=== PATIENT | male | born 1930 | race Caucasian/White ===

== ENCOUNTER 2017-01-15 07:13 | Day surgery (SDC) | payer MEDICARE, BC ==
[~2017-01-15 07:13] MED LIST: RINGERS SOLUTION,LACTATED 1,000 ML IV PRN
--- OUTSIDE RECORDS SUMMARY | 2017-01-15 07:18 | XMS REPORT | Continuity of Care Document ---
:1930 Author Organization [facility] ([facility]) Address [place] [address] Phone [phone] Care Team Providers Name Role Phone Irving Jackman Primary Care Provider [phone] Source Comments This disclosure is being made pursuant to the Care Everywhere program, applicable federal and state laws, and may not contain all informaitonavailable regarding this patient.[facility] ([facility]) Active Allergies and Adverse Reactions Allergen Noted Date Severity Reactions Comments Atorvastatin 09/21/2015 OTHER Muscle weakness Enalapril 09/21/2015 OTHER Muscle weakness Simvastatin 09/21/2015 OTHER Muscle weakness Current Medications Prescription Sig. Disp. Refills Start Date End Date Status acebutolol 200 mg capsule Take 200 mg by Active mouth 2 times daily aspirin 81 mg EC tablet Take 81 mg by Active mouth daily colestipol 1 gram tablet Take 2 g by Active mouth 3 times daily omega-3 fatty acids 1,000 mg Take 1,000 mg by Active capsule mouth 3 times daily gabapentin 300 mg capsule Take 300 mg by Active mouth 2 times daily hydrochlorothiazide 25 mg Take 25 mg by Active tablet mouth daily losartan 100 mg tablet Take 100 mg by Active mouth daily multivitamin tablet Take 1 tablet by Active mouth daily nitroglycerin 0.[address] 0.4 mg Active tablet under the tongue every 5 minutes as needed sulindac 200 mg tablet Take 200 mg by Active mouth 2 times daily ipratropium (ATROVENT HFA) 2 Puffs 4 times Active 17 mcg/Actuation inhaler daily fluticasone 50 mcg/Actuation Use 2 Sprays Active nasal spray into both nostrils daily Active Problems Problem Noted Date Carotid disease, bilateral Overview: right carotid endarterectomy-2004 Dyslipidemia Hypertension Social History Tobacco Use Types Packs/Day Years Used Date Never Smoker Smokeless Tobacco: Never Used Last Filed Vital Signs Vital Sign Reading Time Taken Blood Pressure 126/70 09/21/2015 11:13 AM SENIOR TECHNICAL EDITOR Pulse 66 09/21/2015 11:13 AM SENIOR TECHNICAL EDITOR Temperature - - Respiratory Rate - - Height 1.651 m (5' 5") 09/21/2015 11:13 AM SENIOR TECHNICAL EDITOR Weight 112.492 kg (248 lb) 09/21/2015 11:13 AM SENIOR TECHNICAL EDITOR Body Mass Index 41.27 09/21/2015 11:13 AM SENIOR TECHNICAL EDITOR Oxygen Saturation - - Plan of Care Health Maintenance Due Date Last Done Comments Hepatitis B Vaccine (1 of 3 - Primary Series) 1930 Tdap Vaccine 12/31/1943 Lipid Disorder Screening 1950 Td Vaccine 1948 Colonoscopy 1982 Zoster Vaccine 1992 Pneumococcal Vaccine (1 of 2 - PCV13) 1997 Influenza Vaccine: Seasonal (#1) 05/15/2016 Results from Last 3 Months Not on file
[2017-01-15] MEDS ORDERED: RINGERS SOLUTION,LACTATED 1,000 ML IV ONE (08:30)
[2017-01-15] MEDS ORDERED: RINGERS SOLUTION,LACTATED 1,000 ML IV PRN (09:09)
[2017-01-15 10:03] VITALS: BP 155/62
--- NOTE | 2017-01-15 18:10 | OR ---
Operative Report - Dictated Report Narrative: OPERATIVE REPORT DATE OF OPERATION: 01/15/2017 PREOPERATIVE DIAGNOSIS: Rectal bleeding. History of colitis and known diverticulosis. No recent colon studies POSTOPERATIVE DIAGNOSIS: 4 mm rectal polyp (pathology pending) moderate sigmoid diverticulosis OPERATION: Colonoscopy with hot biopsy forceps polypectomy in the rectum SURGEON: Alan Valladares MD ANESTHESIA: ZULMA Calle CRNA INDICATIONS FOR PROCEDURE: The patient is 86-year-old male referred by Dr. Jackman. He had diverticulosis on colonoscopy by Dr. Damon in 2005. In 2010 he was found to have severe inflammation compatible with antibiotic associated colitis which precluded exam proximal to 30 cm. He has had a recent episode of rectal bleeding with hard stool. FINDINGS: 4 mm polyp in the rectum. Significant sigmoid diverticulosis without inflammation otherwise normal colonoscopy to the cecum NARRATIVE OF PROCEDURE: The patient was identified in the holding area, and prior to the administration of anesthetic, a multidisciplinary timeout was observed. With the patient in the left lateral position and after the administration of intravenous sedation, the perineum was inspected. There was no evidence of pilonidal disease or skin breakdown. The external appearance of the anus was normal. Sphincter tone was good. The flexible fiberoptic colonoscope was inserted into the rectum which was insufflated with air. The rectal mucosa and submucosal vascular pattern appeared normal, the prep was seen to be complete. At 15 cm the patient had a 4 mm polyp which was biopsied and then thoroughly destroyed with electrocautery. The site was seen to be complete and hemostatic. The scope was advanced through the sigmoid colon, which contained numerous large noninflamed diverticula some of which were impacted with stool. The scope was advanced up the descending colon, and around the splenic flexure where the triangular haustral architecture of the transverse colon was seen. The scope was advanced across the transverse colon, around the hepatic flexure to the cecum, where the confluence of tenia and the ileocecal valve were identified. The mucosa at this level appeared normal. The scope was then slowly withdrawn in a circular fashion so that all aspects of colonic mucosa were inspected. The colon was somewhat capacious in character but normal in course. The haustral architecture appeared well preserved throughout with no evidence of external compression. The mucosa and submucosal vascular pattern appeared normal, specifically there was no gross evidence to suggest colitis or inflammatory bowel disease and no AV malformations were seen. The diverticulosis was moderate in degree and confined primarily to the sigmoid colon. No polyps proximal to the rectum were encountered. The scope was gradually withdrawn to the level of the rectum. As much insufflated air as possible was removed. The scope was withdrawn from the patient and the procedure terminated. The patient tolerated the anesthetic and procedure well without complication and was transferred back to the ambulatory surgery area awake and in stable condition. The patient remained stable throughout a period of postoperative observation. He denied abdominal discomfort, was able to tolerate by mouth intake, and was up without assistance. I shared the operative findings with the patient and he was given copies of the photographs which appear in the medical record. He was discharged home with instructions not to engage in hazardous activity today, but may resume normal activity tomorrow, and advance diet as tolerated. He is to continue those medications as listed in the history and physical exam. I made arrangements to contact him with the biopsy reports and will make additional recommendations for treatment and follow-up based upon those results. A pamphlet on diverticular disease was reviewed with him and given to him and continued use of Benefiber and/or MiraLAX was recommended. Reviewed and electronically signed
== END 2017-01-15 07:14 | disposition home or self-care (01) ==
LOC: AMB 07:13
PROVIDERS: ATTEND Surgery
PROC: 0DBP8ZX Excision of Rectum, Via Natural or Artificial Opening Endoscopic, Diagnostic (ICD-10-PCS; principal; 2017-01-15 09:00)
DX: Z12.11 Encounter for screening for malignant neoplasm of colon (principal); K62.1 Rectal polyp; K57.30 Diverticulosis of large intestine without perforation or abscess without bleeding; I10 Essential (primary) hypertension; E78.00 Pure hypercholesterolemia, unspecified; I73.9 Peripheral vascular disease, unspecified; Z68.41 Body mass index [BMI] 40.0-44.9, adult; Z80.0 Family history of malignant neoplasm of digestive organs

== ENCOUNTER 2021-03-25 18:39 | Observation (INO) ==
--- NOTE | 2021-03-25 19:04 | ERNOTE ---
Lower Extremity HPI - Narrative Date of Service: 03/25/21 - General Lower Extremities Pain: leg: left - Painful to move, ankle: left - Tender Time Seen by Provider: 03/25/21 18:50 Source: patient Exam Limitations: no limitations - Immun/Allergies/Home Medications Immunizations: IMMUNIZATION HX Immunizations Up to Date Yes History of Influenza Vaccine Yes Hx Pneumococcal Vaccination Yes Allergies/Adverse Reactions: Allergies Allergy/AdvReac Type Severity Reaction Status Date / Time atenolol AdvReac Mild N/T Verified 03/13/21 21:01 enalapril AdvReac Mild NUMBNESS Verified 03/13/21 21:01 IN RIGHT HAND Home Medications: HOME MEDICATIONS Nitroglycerin [Nitrostat] 0.4 mg SL Q5MIN PRN 09/15/15 [Last Taken 01/14/17] Multivitamins [Multivitamin Chrissie] 1 cap PO DAILY 12/26/16 [Last Taken 01/14/17] naloxone 4 mg/actuation nasal spray 4 mg INTRANASAL Q2M PRN #2 ea 12/03/19 [Last Taken Unknown] gabapentin 600 mg tablet 600 mg PO TID #90 tab 02/01/21 [Last Taken Unknown] losartan 100 mg tablet 100 mg PO DAILY #30 tab 02/01/21 [Last Taken Unknown] acebutolol 200 mg capsule 200 mg PO BID #60 cap 03/08/21 [Last Taken Unknown] hydrochlorothiazide 25 mg tablet 25 mg PO DAILY #30 tab 03/08/21 [Last Taken Unknown] tramadol 50 mg tablet 100 mg PO TID PRN #90 tab 03/08/21 [Last Taken Unknown] - History of Present Illness Narrative: 89-year-old male hard of hearing has been seen recently for the same thing about 10 days ago. Is complaining of pain in the left lower leg from the knee down to the ankle. Complaining of he thinks he has cellulitis cellulitis of same leg with redness patient is difficult to get a history out of also difficult to make understand that the nature of his complaint he needs to follow-up with a specialist there is also wants it to be done in the emergency room. Patient is difficult patient noncompliant contradictory Date (Duration): 03/25/21 Time (Timing): 19:00 Occurred: other - Several months Location of Incident: home Method of Injury: Reports: unknown Reason for Fall: Reports: unknown Modifying Factors - (Improves): Reports: other Associated Symptoms: Reports: unable to bear weight Other Injuries: Reports: none Prior Treament: Reports: recently seen Review of Systems - Review of Systems Constitutional: Present: no symptoms reported EYE: Present: no symptoms reported ENT: Present: other - [place] Respiratory: Present: no symptoms reported Cardiology: Present: no symptoms reported Gastrointestinal/Abdominal: Present: no symptoms reported Genitourinary: Present: no symptoms reported Musculoskeletal: Present: no symptoms reported, joint pain, joint swelling Skin: Present: rash Neurological: Present: no symptoms reported Endocrine: Present: no symptoms reported Hematologic/Lymphatic: Present: no symptoms reported Psych: Present: no symptoms reported All Other Systems: All systems neg except as marked Medical History (Last Reviewed 03/25/21 @ 19:02 by Charles Castro MD) Carpal tunnel syndrome of right wrist Onset Date: ~07/09/15 Chronic renal insufficiency Onset Date: ~03/14/18 stage 3 (moderate) Chronic venous insufficiency Onset Date: ~03/14/18 Cyst or mucocele of sinus (nasal) Onset Date: ~04/10/18 Eczema Onset Date: ~10/21/13 Hearing loss Onset Date: Unknown wears hearing aids both ears Hyperlipidemia Onset Date: Unknown Hypertension Onset Date: Unknown Hypertension, essential, benign Onset Date: ~03/14/18 Intertrigo Onset Date: ~11/01/15 Low back pain Onset Date: ~04/10/18 Lower extremity edema Onset Date: ~06/20/13 Lung nodule Onset Date: ~[address] Memory loss Onset Date: Unknown Neuropathy Onset Date: ~06/20/13 Osteoarthritis Onset Date: ~03/14/18 Osteoarthrosis Onset Date: ~03/14/18 Otitis externa Onset Date: ~03/01/15 PVD (peripheral vascular disease) Onset Date: Unknown Prostatitis Onset Date: Unknown Rhinitis, allergic Onset Date: ~05/20/14 Sinusitis, acute Onset Date: ~03/14/18 Spinal stenosis of lumbar region Onset Date: ~10/05/12 Tongue abnormality Onset Date: ~03/14/18 Surgical History: Surgical History (Last Reviewed 03/25/21 @ 19:02 by Charles Castro MD) H/O sinus surgery Onset Date: ~05/15/18 Colonoscopy planned Onset Date: ~201601/03/2006- [place] mild diverticulosis, 08/03/2011-[place] to 30 cm acute colitis, 01/15/2017- tubular adenoma, moderate sigmoid diverticulosis recheck 5 years FH: carotid endarterectomy Onset Date: ~02/2005 [facility] - right FH: total knee replacement Onset Date: ~200904/21/2005 [place] right knee, 07/12/2010 done in [place] left knee H/O Spinal surgery Onset Date: ~11/2005 Dr Olson removal of cyst - [place] H/O arthroscopic knee surgery Onset Date: ~05/1990 Left- [facility] H/O cystoscopy Onset Date: ~03/2006 bladder neck- done in [place] H/O esophagogastroduodenoscopy Onset Date: ~01/16/11 [place]- clotest negative, moderate chronic superficial gastritis, pattern consistent with Hpylori H/O knee surgery Onset Date: ~200701/26/2006 [place]-removal of right patellar implant followed by revision of patella. 12/2007- removal of right knee cap H/O local excision of skin lesion Onset Date: ~05/10/07 [place], left side of forehead. Letiginous compound, (predominantly dermal) Nevus H/O neck surgery Onset Date: Unknown cyst removed History of carpal tunnel release Onset Date: ~09/24/15 [place]- endoscopic right History of prostate surgery Onset Date: ~03/13/06 TURP done in [place] Hx of cataract surgery Onset Date: ~201007/20/2011 left eye, 08/03/2011 right eye Hx of right heart catheterization Onset Date: ~08/14/06 Dr Zuñiga Previous back surgery Onset Date: ~06/2006 Laminectomy- L-5 done in [place] S/P epidural steroid injection Onset Date: ~201211/04/2012, 11/11/2012 L3-4 S/P rotator cuff repair Onset Date: ~11/1990 right done in Family History: Family History (Last Reviewed 03/25/21 @ 18:52 by Brenda Kirby RN) Brother Cancer colon with resection H/O heart bypass surgery Father , age 52 Lung disease Mother , age 65 Brain tumor Sister Heart problem Father Cancer Diabetes Heart disease Hypertension Hyperlipemia Obesity Social History: (Last Reviewed 03/25/21 @ 18:52 by Brenda Kirby RN) Social History: household members: spouse current occupational status: retired Highest level of school completed/degree received: high school graduate Service: No Tobacco: Smoking Status: Never smoker Alcohol: alcohol intake: current Alcohol type: beer alcohol intake frequency: holiday/special occasion details: maybe 1 beer a few times a month Substance Use: substance use type: does not use Dietary Habits: caffeine: Yes Physical Exam - Physical Exam General Appearance: Present: wd/wn, moderate distress, obese Head Exam: Present: normal inspection Eye Exam: Normal inspection: bilateral Ears, Nose, Throat: Present: normal ENT inspection Neck: Present: normal inspection Respiratory: Present: no respiratory distress Cardiovascular/Chest: Present: regular rate, rhythm Gastrointestinal/Abdominal: Present: normal bowel sounds Back Exam: Present: normal inspection Extremity Exam: Present: normal except -, decreased range of motion, pedal edema, extremity edema - 2+ edema, other - Lower legs are warm dry extremely tender on the left side to touch positive pulses plus. Dorsalis. Absent: non- tender, normal range of motion, no edema, calf tenderness Neurological Exam: Present: alert, oriented Skin Exam: Present: normal color Lymphatic Exam: Present: no adenopathy Progress - Results and Orders Patient's Lab Results:: I have reviewed the patient's lab results. Results and Orders: Laboratory Tests 03/25/21 03/25/21 19:20 19:20 WBC 11.3 H RBC 3.87 L Hgb 12.5 L Hct 39.4 L MCV 101.8 H MCH 32.3 H MCHC 31.7 L RDW 12.7 Plt Count 293 Sodium 141 Plasma Sodium 141 Potassium 5.3 H Chloride 107 H Carbon Dioxide 24.2 Anion Gap 15.1 H BUN 42 H Creatinine 2.00 H Est GFR (Non-Af Amer) 34 L BUN/Creatinine Ratio 21.0 Random Glucose 119 H Calcium 8.9 Calcium Adj for Albumin 9.1 Total Bilirubin 0.4 AST 14 ALT 19 Alkaline Phosphatase 82 Total Protein 7.8 Albumin 3.3 L Laboratory Tests 03/25/21 19:50 Troponin I Less than 0.017 - Vital Signs Vital Signs: Vital Signs 03/25/21 18:40 Temperature 36.6 C Pulse Rate 58 L Respiratory Rate 20 Blood Pressure 181/72 H O2 Sat by Pulse Oximetry 94 - EKG EKG #1 EKG: NSR EKG read: Interp. by me EKG Comments: Sinus bradycardia heart rate [address]-T wave changes no acute change from 03/13/2021 - X-Ray X-Ray #1 X-Ray: knee Interpretation: Interp. by me X-ray Comments: No acute findings X-Ray #2 X-Ray: ankle Interpretation: Interp. by me X-ray Comments: Degenerative changes in the ankle but no acute fracture X-Ray #3 X-Ray: chest Interpretation: Interp. by me X-ray Comments: Enlarged heart no acute disease - Progress/Reassessment Progress:: Unchanged Plan - Plan Plan: Further history patient's neighbor states that the patient goes to [place] for [facility] situation where he has to take care of them with lung cancer and she is not capable of getting around and he cannot take care of himself. At times he can use a crutch and other times the pain is so severe he has to use a walker to get around the house. But that is becoming much more difficult he cannot move himself around to go to the bathroom if you touch the his leg he screams in pain even if you do not move it just cold air blowing on it gives him pain. Have discussed with patient the possibility of staying in overnight as an observation to we can get the either the pain under control and get him started walking Departure Clinical Impression: Acute pain of left lower extremity, Peripheral neuropathy, Venous insufficiency (chronic) (peripheral), Chronic stasis dermatitis, Hyperkalemia - Departure Disposition: Short Term Hospital Inpatient Condition: Fair Additional Instructions: Admit to Dr. Oglesby Referrals: Irving Joseph MD [Primary Care Provider] -
[2021-03-25 19:29] LABS: Hematocrit 39.4 % (42.0-52.0); Hemoglobin 12.5 gm/dL (13.5-18.0); Mean Cell Volume 101.8 fl (78-100); Mean Corpuscular Hemoglobin 32.3 pg (27-31); Mean Corpuscular Hgb Conc 31.7 g/dl (32-36); Mean Platelet Volume 9.4 fl (8-11.3); Platelet Count 293 K/mm3 (150-450); Red Blood Count 3.87 M/mm3 (4.7-6.0); Red Cell Distribution Width 12.7 % (11.5-14.0); White Blood Count 11.3 K/mm3 (4.0-10.5)
[2021-03-25 19:42] LABS: Albumin * 3.3 gm/dl (3.4-5.0); Anion Gap 15.1 mmol/L (6.8-13.8); Bilirubin, Total 0.4 mg/dL (0.0-1.1); Ca. Corrected For Albumin 9.1 mg/dL (8.4-10.2); Calcium * 8.9 mg/dL (7.9-10.9); Carbon Dioxide 24.2 mmol/L (24-32.6); Potassium 5.3 mmol/L (3.4-4.6); Total Protein 7.8 gm/dL (6.2-8.2)
[2021-03-25] MEDS ORDERED: NORMAL SALINE 1,000 ML IV ONE (20:56)
[2021-03-25] MEDS ORDERED: traMADol HCL 50 MG TABLET PO ONE (20:57)
[2021-03-25] MEDS ORDERED: CALCIUM GLUCONATE 4.65 MEQ/10 ML VIAL IV ONE (21:02)
[2021-03-25] MEDS ORDERED: traMADol HCL 50 MG TABLET PO PRN (23:45)
[2021-03-25] MEDS ORDERED: NITROGLYCERIN 0.4 MG/TAB BTL SL PRN (23:45)
[2021-03-25] MEDS ORDERED: FUROSEMIDE 10 MG/ML VIAL IV ONE (23:53)
[2021-03-25] MEDS: LOSARTAN POTASSIUM 50 MG TABLET PO SCH (23:59)
[2021-03-26 00:47] LABS: Urine Bilirubin Negative (NEGATIVE); Urine Blood Negative /ul (NEGATIVE); Urine Ketone Negative (NEGATIVE); Urine Nitrite Negative (NEGATIVE); Urine Protein Negative (NEGATIVE); Urine Urobilinogen Normal (NORMAL)
[2021-03-26 00:53] LABS: Urine Color Pale Yellow
[2021-03-26 00:54] LABS: Urine Appearance Clear (CLEAR); Urine Bacteria TRACE; Urine RBC TRACE /hpf (0-5); Urine WBC TRACE /hpf (0-5)
[2021-03-26] MEDS: GABAPENTIN 600 MG TABLET PO SCH ×3 (08:27→12:14)
[2021-03-26] MEDS: LOSARTAN POTASSIUM 50 MG TABLET PO SCH (08:27)
--- NOTE | 2021-03-26 08:46 | HP ---
Chief Complaint - Chief Complaint Date of Service: 03/26/21 Time of Service: 08:05 Chief Complaint: leg pain History of Present Illness: Bj Mann is an 89-year-old white male with past medical history significant for hypertension, hyperlipidemia, peripheral arterial disease, spinal stenosis, peripheral neuropathy, intertrigo who was admitted on 03/25/2021 because of acute intractable left leg and foot pain. He thought he was having a recurrent cellulitis and went to our emergency room for evaluation. He had a mild elevated WBC count, potassium of 5.3, creatinine of 2, GFR of 34, random blood sugar 119, liver function test within normal limits, urinalysis showing no UTI, chest x-ray showing poor inspiration but no acute cardiopulmonary findings. His pain was severe and intractable so much so that even touching his leg with your finger as per emergency room physician patient started shouting . Unofficial X- ray of his left ankle showed no acute osseous findings except for possible old injury to medial malleolus; unofficial reading of x-ray of his knee showed implants in place with no evidence of complication. The patient's has lung cancer and is not capable of getting around the house so the patient has been taking care of her. He said that his wanted the room to be cooler and to put on the fan and he feels now that the only difference between the hospital room and their house is the temperature. He is no longer complaining of pain as opposed to yesterday when he said just moving his leg and ankle joint and his skin being touched by the examining hand/finger would make him shout out in pain. Medical History (Last Reviewed 03/25/21 @ 19:02 by Charles Castro MD) Carpal tunnel syndrome of right wrist Onset Date: ~07/09/15 Chronic renal insufficiency Onset Date: ~03/14/18 stage 3 (moderate) Chronic venous insufficiency Onset Date: ~03/14/18 Cyst or mucocele of sinus (nasal) Onset Date: ~04/10/18 Eczema Onset Date: ~10/21/13 Hearing loss Onset Date: Unknown wears hearing aids both ears Hyperlipidemia Onset Date: Unknown Hypertension Onset Date: Unknown Hypertension, essential, benign Onset Date: ~03/14/18 Intertrigo Onset Date: ~11/01/15 Low back pain Onset Date: ~04/10/18 Lower extremity edema Onset Date: ~06/20/13 Lung nodule Onset Date: ~[address] Memory loss Onset Date: Unknown Neuropathy Onset Date: ~06/20/13 Osteoarthritis Onset Date: ~03/14/18 Osteoarthrosis Onset Date: ~03/14/18 Otitis externa Onset Date: ~03/01/15 PVD (peripheral vascular disease) Onset Date: Unknown Prostatitis Onset Date: Unknown Rhinitis, allergic Onset Date: ~05/20/14 Sinusitis, acute Onset Date: ~03/14/18 Spinal stenosis of lumbar region Onset Date: ~10/05/12 Tongue abnormality Onset Date: ~03/14/18 Surgical History: Surgical History (Last Reviewed 03/25/21 @ 19:02 by Charles Castro MD) H/O sinus surgery Onset Date: ~05/15/18 Colonoscopy planned Onset Date: ~201601/03/2006- [place] mild diverticulosis, 08/03/2011-[place] to 30 cm acute colitis, 01/15/2017- tubular adenoma, moderate sigmoid diverticulosis recheck 5 years FH: carotid endarterectomy Onset Date: ~02/2005 [facility] - right FH: total knee replacement Onset Date: ~200904/21/2005 [place] right knee, 07/12/2010 done in [place] left knee H/O Spinal surgery Onset Date: ~11/2005 Dr Olson removal of cyst - eduard rapid H/O arthroscopic knee surgery Onset Date: ~05/1990 Left- [facility] H/O cystoscopy Onset Date: ~03/2006 bladder neck- done in [place] H/O esophagogastroduodenoscopy Onset Date: ~01/16/11 [place]- clotest negative, moderate chronic superficial gastritis, pattern consistent with Hpylori H/O knee surgery Onset Date: ~200701/26/2006 [place]-removal of right patellar implant followed by revision of patella. 12/2007- removal of right knee cap H/O local excision of skin lesion Onset Date: ~05/10/07 [place], left side of forehead. Letiginous compound, (predominantly dermal) Nevus H/O neck surgery Onset Date: Unknown cyst removed History of carpal tunnel release Onset Date: ~09/24/15 [place]- endoscopic right History of prostate surgery Onset Date: ~03/13/06 TURP done in [place] Hx of cataract surgery Onset Date: ~201007/20/2011 left eye, 08/03/2011 right eye Hx of right heart catheterization Onset Date: ~08/14/06 Dr Zuñiga Previous back surgery Onset Date: ~06/2006 Laminectomy- L-5 done in [place] S/P epidural steroid injection Onset Date: ~201211/04/2012, 11/11/2012 L3-4 S/P rotator cuff repair Onset Date: ~11/1990 right done in Family History: Family History (Last Reviewed 03/25/21 @ 18:52 by Brenda Kirby RN) Brother Cancer colon with resection H/O heart bypass surgery Father , age 52 Lung disease Mother , age 65 Brain tumor Sister Heart problem Father Cancer Diabetes Heart disease Hypertension Hyperlipemia Obesity Social History: (Last Reviewed 03/25/21 @ 18:52 by Brenda Kirby RN) Social History: household members: spouse current occupational status: retired Highest level of school completed/degree received: high school graduate Service: No Tobacco: Smoking Status: Never smoker Alcohol: alcohol intake: current Alcohol type: beer alcohol intake frequency: holiday/special occasion details: maybe 1 beer a few times a month Substance Use: substance use type: does not use Dietary Habits: caffeine: Yes Review Of Systems (GEN) - Review of Systems Generalized/Overall Review: Absent: Weakness, Chills, Fever EENTM: Absent: Blurred Vision Respiratory: Absent: Cough, Shortness of Breath, Orthopnea Cardiac: Present: Edema. Absent: Chest Pain, Palpitations Abdominal: Absent: Nausea, Vomiting, Hematemesis Genitourinary: Absent: Urgency, Frequency Musculoskeletal: Present: Joint Pain, Back Pain Neurological: Absent: Headache Skin: Present: Dryness, Lesions - Scaly back of his left leg. Absent: Rash Misc: All systems neg except as marked Immunizations: IMMUNIZATION HX Immunizations Up to Date Yes History of Influenza Vaccine Yes Hx Pneumococcal Vaccination Yes Allergies/Adverse Reactions: Allergies Allergy/AdvReac Type Severity Reaction Status Date / Time atenolol AdvReac Mild N/T Verified 03/13/21 21:01 enalapril AdvReac Mild NUMBNESS Verified 03/13/21 21:01 IN RIGHT HAND Home Medications: HOME MEDICATIONS Nitroglycerin [Nitrostat] 0.4 mg SL Q5MIN PRN 09/15/15 [Last Taken 01/14/17] Multivitamins [Multivitamin Chrissie] 1 cap PO DAILY 12/26/16 [Last Taken 01/14/17] naloxone 4 mg/actuation nasal spray 4 mg INTRANASAL Q2M PRN #2 ea 12/03/19 [Last Taken Unknown] gabapentin 600 mg tablet 600 mg PO TID #90 tab 02/01/21 [Last Taken Unknown] losartan 100 mg tablet 100 mg PO DAILY #30 tab 02/01/21 [Last Taken Unknown] acebutolol 200 mg capsule 200 mg PO BID #60 cap 03/08/21 [Last Taken Unknown] hydrochlorothiazide 25 mg tablet 25 mg PO DAILY #30 tab 03/08/21 [Last Taken Unknown] tramadol 50 mg tablet 100 mg PO TID PRN #90 tab 03/08/21 [Last Taken Unknown] Exam - Exam Vital Signs: Vital Signs - Last Taken Temp 37.3 C 03/26/21 07:00 Pulse 60 03/26/21 07:00 Resp 16 03/26/21 07:00 BP 132/66 03/26/21 07:00 Pulse Ox 95 03/26/21 07:00 Constitutional: Present: Alert, Oriented x3, Cooperative, Elderly, Obese ENT Exam: Present: hard of hearing Eye Exam: bilateral eye: normal inspection, PERRL, EOMI Neck: Present: supple. Absent: lymphadenopathy (R), lymphadenopathy (L) Respiratory: Present: decreased breath sounds, No rales, No wheezing Cardiovascular/Chest: Present: regular rate, rhythm, no JVD, no murmur Abdomen: Present: Normal bowel sounds, soft, nontender, obese Extremity: Present: no calf tenderness, pedal edema Skin Exam: Present: warm/dry, skin rash, diaper rash - scaly. Absent: mottled Diagnostic Studies: Abnormal Lab Results 03/25/21 03/25/21 Range/Units 19:20 19:20 WBC 11.3 H (4.0-10.5) K/mm3 RBC 3.87 L (4.7-6.0) M/mm3 Hgb 12.5 L (13.5-18.0) gm/dL Hct 39.4 L (42.0-52.0) % MCV 101.8 H (78-100) fl MCH 32.3 H (27-31) pg MCHC 31.7 L (32-36) g/dl Lymphocytes % 18.1 L (20-51) % Eosinophils % 4.5 H (0.0-3.0) % Neutrophils # 8.0 H (1.3-6.0) K/mm3 Potassium 5.3 H (3.4-4.6) mmol/L Chloride 107 H (97-106) mmol/L Anion Gap 15.1 H (6.8-13.8) mmol/L BUN 42 H (6-23) mg/dL Creatinine 2.00 H (0.4-1.4) mg/dL Est GFR (Non-Af Amer) 34 L (60-130) mL/min Random Glucose 119 H (70-110) mg/dL Albumin 3.3 L (3.4-5.0) gm/dl Laboratory Results WBC 11.3 K/mm3 (4.0-10.5) H 03/25/21 19:20 RBC 3.87 M/mm3 (4.7-6.0) L 03/25/21 19:20 Hgb 12.5 gm/dL (13.5-18.0) L 03/25/21 19:20 Hct 39.4 % (42.0-52.0) L 03/25/21 19:20 MCV 101.8 fl (78-100) H 03/25/21 19:20 MCH 32.3 pg (27-31) H 03/25/21 19:20 MCHC 31.7 g/dl (32-36) L 03/25/21 19:20 RDW 12.7 % (11.5-14.0) 03/25/21 19:20 Plt Count 293 K/mm3 (150-450) 03/25/21 19:20 MPV 9.4 fl (8-11.3) 03/25/21 19:20 Immature Gran % (Auto) 0.30 % (0.001-0.429) 03/25/21 19:20 Immature Gran # (Auto) 0.03 K/mm3 (0.000-0.0310) 03/25/21 19:20 Neutrophils % 71.0 % (42-75.0) 03/25/21 19:20 Lymphocytes % 18.1 % (20-51) L 03/25/21 19:20 Monocytes % 5.9 % (0.0-9) 03/25/21 19:20 Eosinophils % 4.5 % (0.0-3.0) H 03/25/21 19:20 Basophils % 0.2 % (0.0-1.0) 03/25/21 19:20 Nucleated RBC % 0.0 k/mm3 (0-1) 03/25/21 19:20 Neutrophils # 8.0 K/mm3 (1.3-6.0) H 03/25/21 19:20 Lymphocytes # 2.04 k/mm3 (1.5-3.5) 03/25/21 19:20 Monocytes # 0.7 k/mm3 (0.0-1.0) 03/25/21 19:20 Eosinophils # 0.5 k/mm3 (0.0-0.7) 03/25/21 19:20 Absolute Basophils 0.0 k/mm3 (0.0-0.1) 03/25/21 19:20 Sodium 141 mmol/L (132-142) 03/25/21 19:20 Plasma Sodium 141 mmol/L (130-142) 03/25/21 19:20 Potassium 5.3 mmol/L (3.4-4.6) H 03/25/21 19:20 Chloride 107 mmol/L (97-106) H 03/25/21 19:20 Carbon Dioxide 24.2 mmol/L (24-32.6) 03/25/21 19:20 Anion Gap 15.1 mmol/L (6.8-13.8) H 03/25/21 19:20 BUN 42 mg/dL (6-23) H 03/25/21 19:20 Creatinine 2.00 mg/dL (0.4-1.4) H 03/25/21 19:20 Est GFR (Non-Af Amer) 34 mL/min (60-130) L 03/25/21 19:20 BUN/Creatinine Ratio 21.0 (9.0-21.6) 03/25/21 19:20 Random Glucose 119 mg/dL (70-110) H 03/25/21 19:20 Calcium 8.9 mg/dL (7.9-10.9) 03/25/21 19:20 Calcium Adj for Albumin 9.1 mg/dL (8.4-10.2) 03/25/21 19:20 Total Bilirubin 0.4 mg/dL (0.0-1.1) 03/25/21 19:20 AST 14 U/L (0-48) 03/25/21 19:20 ALT 19 U/L (19-67) 03/25/21 19:20 Alkaline Phosphatase 82 U/L (50-170) 03/25/21 19:20 Troponin I Less than 0.017 ng/mL (0.00-0.10) 03/25/21 19:50 Total Protein 7.8 gm/dL (6.2-8.2) 03/25/21 19:20 Albumin 3.3 gm/dl (3.4-5.0) L 03/25/21 19:20 Urine Color Pale yellow 03/26/21 00:45 Urine Appearance Clear (CLEAR) 03/26/21 00:45 Urine pH 6.0 pH (5.0-7.0) 03/26/21 00:45 Ur Specific [place] 1.010 SP.GR. (1.005-1.030) 03/26/21 00:45 Urine Protein Negative mg/dL (NEGATIVE) 03/26/21 00:45 Urine Glucose (UA) Negative mg/dL (NEGATIVE) 03/26/21 00:45 Urine Ketones Negative mg/dL (NEGATIVE) 03/26/21 00:45 Urine Blood Negative /ul (NEGATIVE) 03/26/21 00:45 Urine Nitrate Negative (NEGATIVE) 03/26/21 00:45 Urine Bilirubin Negative mg/dl (NEGATIVE) 03/26/21 00:45 Urine Urobilinogen Normal EU/dl (NORMAL) 03/26/21 00:45 Ur Leukocyte Esterase Negative /ul (NEGATIVE) 03/26/21 00:45 Urine RBC Trace /hpf (0-5) 03/26/21 00:45 Urine WBC Trace /hpf (0-5) 03/26/21 00:45 Ur Epithelial Cells Trace /hpf (0-5) 03/26/21 00:45 Urine Bacteria Trace (NONE) 03/26/21 00:45 Urine Culture Comments No culture indicated 03/26/21 00:45 SARS-CoV-2 (PCR) Not detected (NotDetected) 03/25/21 20:55 Assessment/Plan - Narrative Narrative: Bj was admitted for intractable severe pain of his left leg which likely was ischemic versus neuropathic. Since the pain is no longer present ever since after being admitted and he feels that the temperature has something to do with it it is possible that the cooler temperature at home could have caused some vasoconstriction and reduce flow to his lower leg and foot causing ischemic pain. It is still possible it could be neuropathic pain with temperature causing some dysautonomia and causing more pain. His elevated white blood cell count could be reactive versus beginning infection. We will repeat blood work to check for his hyperkalemia. - Assessment/Plan (1) Acute pain of left lower extremity Problem: Acute (2) Hyperkalemia Problem: Acute (3) Leukocytosis Problem: Acute (4) Chronic low back pain Problem: Chronic Qualifiers: (5) Peripheral neuropathy Problem: Chronic Qualifiers: (6) Chronically on opiate therapy Problem: Chronic (7) Hyperlipidemia Problem: Chronic Qualifiers: (8) PVD (peripheral vascular disease) Problem: Chronic (9) Venous insufficiency (chronic) (peripheral) Problem: Chronic (10) Hypertension Problem: Chronic Qualifiers: (11) Lumbar spinal stenosis Problem: Chronic Qualifiers:
[2021-03-26] MEDS ORDERED: MULTIVITAMINS 1 CAP CAPSULE PO SCH (09:00)
[2021-03-26] MEDS ORDERED: LOSARTAN POTASSIUM 50 MG TABLET PO SCH (09:00)
[2021-03-26 11:40] LABS: Hematocrit 37.6 % (42.0-52.0); Mean Cell Volume 100.8 fl (78-100); Mean Corpuscular Hemoglobin 32.2 pg (27-31); Mean Corpuscular Hgb Conc 31.9 g/dl (32-36); Mean Platelet Volume 9.1 fl (8-11.3); Neutrophil # 9.3 K/mm3 (1.3-6.0); Neutrophil % 72.8 % (42-75.0); Platelet Count 261 K/mm3 (150-450); Red Blood Count 3.73 M/mm3 (4.7-6.0); Red Cell Distribution Width 12.6 % (11.5-14.0); White Blood Count 12.8 K/mm3 (4.0-10.5)
[2021-03-26 12:24] LABS: Anion Gap 13.5 mmol/L (6.8-13.8); BUN/Creatinine Ratio 23.1 (9.0-21.6); CRP 2.5 mg/dL (0.0-0.9); Calcium * 8.6 mg/dL (7.9-10.9); Carbon Dioxide 27.1 mmol/L (24-32.6); Estimated Creat Clear 28.5; Potassium 4.6 mmol/L (3.4-4.6)
--- NOTE | 2021-03-26 13:25 | DS ---
(1) Acute pain of left lower extremity Problem: Acute (2) Hyperkalemia Problem: Acute (3) Leukocytosis Problem: Acute (4) Chronic low back pain Problem: Chronic Qualifiers: (5) Peripheral neuropathy Problem: Chronic Qualifiers: (6) Chronically on opiate therapy Problem: Chronic (7) Hyperlipidemia Problem: Chronic Qualifiers: (8) PVD (peripheral vascular disease) Problem: Chronic (9) Venous insufficiency (chronic) (peripheral) Problem: Chronic (10) Hypertension Problem: Chronic Qualifiers: (11) Lumbar spinal stenosis Problem: Chronic Qualifiers: (12) Eczematous dermatitis Problem: Acute Qualifiers: Eczema type: unspecified Qualified Code(s): L30.9 - Dermatitis, unspecified Date of Discharge:: 03/26/21 Hospital Course: Bj Mann is an 89-year-old white male with past medical history significant for hypertension, hyperlipidemia, peripheral arterial disease, spinal stenosis, peripheral neuropathy, intertrigo who was admitted on 03/25/2021 because of acute intractable left leg and foot pain. He thought he was having a recurrent cellulitis and went to our emergency room for evaluation. He had a mild elevated WBC count, potassium of 5.3, creatinine of 2, GFR of 34, random blood sugar 119, liver function test within normal limits, urinalysis showing no UTI, chest x-ray showing poor inspiration but no acute cardiopulmonary findings. His pain was severe and intractable so much so that even touching his leg with your finger as per emergency room physician patient started shouting . X-ray of his left ankle showed no acute osseous findings , x-ray of his knee showed implants in place with no evidence of complication. The patient's has lung cancer and is not capable of getting around the house so the patient has been taking care of her. He said that his wanted the room to be cooler and to put on the fan and he feels now that the only difference between the hospital room and their house is the temperature. He is no longer complaining of pain as opposed to yesterday when he said just moving his leg and ankle joint and his skin being touched by the examining hand/finger would make him shout out in pain. His pain was likely ischemic versus neuropathic. It it is possible that the cooler temperature at home could have caused some vasoconstriction and reduce flow to his lower leg and foot causing ischemic pain. It is still possible it could be neuropathic pain with temperature causing some dysautonomia and causing more pain. His repeat blood work shows his potassium is back to normal however his white blood cell count is still elevated with an elevated ESR/CRP. It is possible the rash in his left leg is due to an infected eczematoid dermatitis and will discharge him on doxycycline 100 twice daily for 10 days and he can apply fluocinonide topical ointment twice a day to the affected area. We will also decrease his ACU Talal from 200 mg p.o. twice daily to 100 mg p.o. twice daily because of mild bradycardia and his peripheral vascular disease. We will add amlodipine 10 mg p.o. daily. Will need to follow-up with his primary care physician next week. Procedures Performed: none Results and Findings: Lab Pending Results 03/25/21 19:20: WBC 11.3 H, RBC 3.87 L, Hgb 12.5 L, Hct 39.4 L, MCV 101.8 H, MCH 32.3 H, MCHC 31.7 L, RDW 12.7, Plt Count 293, MPV 9.4, Immature Gran % (Auto) 0.30, Immature Gran # (Auto) 0.03, Neutrophils % 71.0, Lymphocytes % 18.1 L, Mon ocytes % 5.9, Eosinophils % 4.5 H, Basophils % 0.2, Nucleated RBC % 0.0, Neutrophils # 8.0 H, Lymphocytes # 2.04, Monocytes # 0.7, Eosinophils # 0.5, Absolute Basophils 0.0 03/25/21 19:20: Sodium 141, Plasma Sodium 141, Potassium 5.3 H, Chloride 107 H, Carbon Dioxide 24.2, Anion Gap 15.1 H, BUN 42 H, Creatinine 2.00 H, Est GFR (Non-Af Amer) 34 L, BUN/Creatinine Ratio 21.0, Random Glucose 119 H, Calcium 8.9, Calcium Adj for Albumin 9.1, Total Bilirubin 0.4, AST 14, ALT 19, Alkaline Phosphatase 82, Total Protein 7.8, Albumin 3.3 L 03/25/21 19:50: Troponin I Less than 0.017 03/25/21 20:55: SARS-CoV-2 (PCR) Not detected 03/26/21 00:45: Urine Color Pale yellow, Urine Appearance Clear, Urine pH 6.0, Ur Specific [place] 1.010, Urine Protein Negative, Urine Glucose (UA) Negative, Urine Ketones Negative, Urine Blood Negative, Urine Nitrate Negative, Urine Bilirubin Negative, Urine Urobilinogen Normal, Ur Leukocyte Esterase Negative, Urine RBC Trace, Urine WBC Trace, Ur Epithelial Cells Trace, Urine Bacteria Trace, Urine Culture Comments No culture indicated 03/26/21 11:36: WBC 12.8 H, RBC 3.73 L, Hgb 12.0 L, Hct 37.6 L, MCV 100.8 H, MCH 32.2 H, MCHC 31.9 L, RDW 12.6, Plt Count 261, MPV 9.1, Immature Gran % (Auto) 0.30, Immature Gran # (Auto) 0.04 H, Neutrophils % 72.8, Lymphocytes % 16.4 L, Monocytes % 7.2, Eosinophils % 3.1 H, Basophils % 0.2, Nucleated RBC % 0.0, Neutrophils # 9.3 H, Lymphocytes # 2.09, Monocytes # 0.9, Eosinophils # 0.4, Absolute Basophils 0.0 03/26/21 11:36: ESR 95 H 03/26/21 11:36: Sodium 139, Plasma Sodium 139, Potassium 4.6, Chloride 103, Carbon Dioxide 27.1, Anion Gap 13.5, BUN 36 H, Creatinine 1.56 H D, Est GFR (Non-Af Amer) 45 L D, BUN/Creatinine Ratio 23.1 H, Random Glucose 130 H, Calcium 8.6, C-Reactive Prot, Quant 2.5 H Discharge Location: Home Disposition: Home self-care Condition: Stable Discharge Activity: Activity as tolerated Discharge Diet: Low salt Referrals: Irving Joseph MD [Primary Care Provider] - Additional Patient Instructions (free text): Follow-up with his primary care physician, Dr. Jackman, next week. Prescriptions (Any new or edited meds): Amlodipine Besylate 10 mg PO DAILY #30 tab Transmission Status: Pending to [facility] #[id number] Doxycycline Hyclate 100 mg PO BID #20 tablet.dr Transmission Status: Pending to [facility] #[id number] Fluocinonide 15 gm TP BID #1 oint...g. Transmission Status: Pending to [facility] #[id number] Acebutolol HCl [Sectral] 100 mg PO BID #60 cap Transmission Status: Pending to [facility] #[id number] Complete Home Medications List: Complete Home Medication List: Nitroglycerin [Nitrostat] 0.4 mg SL Q5MIN PRN 09/15/15 Multivitamins [Multivitamin Chrissie] 1 cap PO DAILY 12/26/16 naloxone 4 mg/actuation nasal spray 4 mg INTRANASAL Q2M PRN #2 ea 12/03/19 gabapentin 600 mg tablet 600 mg PO TID #90 tab 02/01/21 losartan 100 mg tablet 100 mg PO DAILY #30 tab 02/01/21 hydrochlorothiazide 25 mg tablet 25 mg PO DAILY #30 tab 03/08/21 tramadol 50 mg tablet 100 mg PO TID PRN #90 tab 03/08/21 Acebutolol HCl [Sectral] 100 mg PO BID #60 cap 03/26/21 Amlodipine Besylate 10 mg PO DAILY #30 tab 03/26/21 Doxycycline Hyclate 100 mg PO BID #20 tablet.dr 03/26/21 Fluocinonide 15 gm TP BID #1 oint...g. 03/26/21
[2021-03-26 16:30] VITALS: BP 126/44
== END 2021-03-26 16:37 | disposition home or self-care (01) ==
LOC: ER 18:39 → MS 18:39
PROVIDERS: ADMIT Internal Medicine; ATTEND Internal Medicine